=== PATIENT | female | born 1995 | race Two or more races ===

== ENCOUNTER → 2024-08-23 | Emergency (ER) | payer OTHER ==
[~2024-08-23] VITALS: Ht 152.4 cm; Wt 52.2 kg
[~2024-08-23] MED LIST: CLORAZEPATE DI7.5 MG PO; SOVUNA200 MG PO; VENLAFAXINE H37.5 M2 PO; VENLAFAXINE HC150 M1 PO
== END | disposition left against medical advice (07) ==
LOC: ER 21:38
DX: Z53.21 Procedure and treatment not carried out due to patient leaving prior to being seen by health care provider (principal)

== ENCOUNTER 2025-03-26 15:48 | Inpatient (IN) | payer OTHER ==
[~2025-03-26] VITALS: Ht 152.4 cm; Wt 59.0 kg
[~2025-03-26 15:48] MED LIST changes: +MORPHINE SULFATE 4 MG/ML VIAL IV ONE
[2025-03-26] MEDS ORDERED: SOVUNA200 MG (16:03)
--- NOTE | 2025-03-26 16:04 | NUR ---
SE RECIBE PACIENTE ALERTA Y ORIENTADA X 3 ESFERAS EN AMBULANCIA DEL CDT DE EDITH DEBIDO A QUE PACIENTE PRESENTA DOLOR ABDOMINAL Y NAUSEAS DESDE HACE 2 HERMAN.
[2025-03-26] MEDS ORDERED: 0.9 % SODIUM CHLORIDE 1,000 ML IV STA (16:15)
[2025-03-26] MEDS ORDERED: MORPHINE SULFATE 4 MG/ML VIAL IV STA (16:17)
--- NOTE | 2025-03-26 16:30 | NUR ---
OLIVAS EDUCA A PTE SOBRE [place] [facility],SE BRITTANEY MUESTRAS DE LABORATORIO UTILIZANDO MEDIDAS ASEPTICAS. SE COLOCA H/L ROSANGELA DE EDEMA. SE ADMINISTRAN MEDICAMENTOS ROSAMARIA ORDEN MEDICA. SE NOTIFICA ESTUDIO DE CT PENDIENTE A REALIZAR.
[2025-03-26 16:41] LABS: BASO % 0.4 % (0.1-1.2); EOS # 0.00 (0.04-0.54); EOS % 0.0 % (0.7-7.0); LYMPH # 1.52 (1.18-3.74); LYMPH % 14.1 % (19.3-53.1); MEAN PLATELET VOLUME 9.50 fl (9.4-12.4); MONO # 0.80 (0.24-0.82); MONO % 7.4 % (4.7-12.5); NEUT # 8.34 (1.56-6.13); NEUT % 77.6 % (34.0-71.1); RED CELL DISTRIBUTION WIDTH 13.1 % (11.6-14.4)
[2025-03-26 17:05] LABS: INR 1.1
[2025-03-26 17:39] LABS: ALT/SGPT 18.0 U/L (12-78); AST/SGOT 13.0 U/L (15-37); BILIRUBIN TOTAL 0.7 mg/dL (0.3-1.2); BUN CREA RATIO 18.0 (7.0-25.0); CREATININE SERUM 0.67 mg/dL (0.55-1.02); GFR 104.06; GLOBULINA 2.5 G/DL (2.4-3.5); GLUCOSE FASTING 95.0 mg/dL (65-100); OSMOLALITY SERUM 281.0 MOSM/KG (275-295)
--- NOTE | 2025-03-26 17:53 | NUR ---
SE REQUIZAN 2 UNIDADES DE PRBC ROSAMARIA ORDEN MEDICA. SE BRITTANEY TUBOS PILOTOS A PTE Y SE LLEVAN LOS MISMOS A LABORATORIO.
[2025-03-26 19:15] LABS: URINE APPEARANCE Clear; URINE BILIRRUBIN Negative (NEGATIVE); URINE BLOOD Large; URINE COLOR Yellow; URINE GLUCOSE Negative (NEGATIVE); URINE LEUKOCYTE Negative; URINE NITRATE Negative; URINE PROTEIN Negative (NEGATIVE); URINE UROBILINOGEN 0.2 E.U./dl
[2025-03-26 19:18] LABS: URINE BACTERIA 475.1 uL (0.0-1933); URINE EPITHELIAL CELLS 43.6 uL (0.0-38.8); URINE RBC 7.9 uL (0.0-20.8); URINE WBC 27.3 uL (0.0-23.2)
[2025-03-26 19:40] LABS: URINE CAST 0.14 uL (0.0-1.40); URINE KETONE 80 (NEGATIVE)
[2025-03-26] MEDS ORDERED: CEFAZOLIN SODIUM 1,000 MG VIAL IV ONE (21:15)
[2025-03-26] MEDS ORDERED: SUGAMMADEX SODIUM 200 MG/2 ML VIAL IV SCH (22:30)
[2025-03-26] MEDS ORDERED: ONDANSETRON HCL 2 MG/ML VIAL IV ONE (23:05)
[2025-03-26] MEDS ORDERED: MORPHINE SULFATE 4 MG/ML VIAL IV ONE (23:10)
[2025-03-27] MEDS ORDERED: MORPHINE SULFATE 4 MG/ML VIAL IV SCH (01:00)
[2025-03-27] MEDS ORDERED: MORPHINE SULFATE 4 MG/ML VIAL IV ONE (01:00)
[2025-03-27 03:50] VITALS: BP 129/72
[2025-03-27 04:05] VITALS: O2SAT 100
[2025-03-27 04:11] VITALS: BP 129/72
[2025-03-27] MEDS ORDERED: OxyCODONE HCL 5 MG TABLET (ROXICODONE) PO SCH (05:00)
[2025-03-27] MEDS ORDERED: SIMETHICONE 125 MG CAPSULE PO SCH (08:00)
[2025-03-27 08:49] VITALS: BP 123/71
[2025-03-27 17:16] VITALS: BP 127/71
[2025-03-28] VITALS: BP 124/78
[2025-03-28 09:44] VITALS: BP 128/77
[2025-03-28 11:13] LABS: BASO % 0.4 % (0.1-1.2); EOS # 0.04 (0.04-0.54); EOS % 0.5 % (0.7-7.0); LYMPH # 1.06 (1.18-3.74); LYMPH % 12.7 % (19.3-53.1); MEAN PLATELET VOLUME 9.20 fl (9.4-12.4); MONO # 0.83 (0.24-0.82); MONO % 9.9 % (4.7-12.5); NEUT # 6.35 (1.56-6.13); NEUT % 75.9 % (34.0-71.1); RED CELL DISTRIBUTION WIDTH 13.9 % (11.6-14.4)
[2025-03-28 16:17] VITALS: BP 127/80
[2025-03-29] VITALS: BP 113/76
[2025-03-29 08:00] VITALS: BP 126/74
== END 2025-03-29 09:51 | disposition home or self-care (01) | DRG 818 ==
LOC: ER 15:48 → OB/GYN 19:02 → O/R 19:02 → OB/GYN 22:55
PROVIDERS: ADMIT Obstetrics & Gynecology; ATTEND Obstetrics & Gynecology
PROC: BU4CZZZ Ultrasonography of Uterus and Ovaries (ICD-10-PCS; 2025-03-26)
PROC: BW21ZZZ Computerized Tomography (CT Scan) of Abdomen and Pelvis (ICD-10-PCS; 2025-03-26)
PROC: 30233N1 Transfusion of Nonautologous Red Blood Cells into Peripheral Vein, Percutaneous Approach (ICD-10-PCS; 2025-03-26)
PROC: 0UQ10ZZ Repair Left Ovary, Open Approach (ICD-10-PCS; principal; 2025-03-27)
PROC: 10D20ZZ Extraction of Products of Conception, Ectopic, Open Approach (ICD-10-PCS; 2025-03-27)
DX: O00.202 Left ovarian pregnancy without intrauterine pregnancy (principal); D62 Acute posthemorrhagic anemia; M32.9 Systemic lupus erythematosus, unspecified; D64.9 Anemia, unspecified